=== PATIENT | female | born 1945 | race Caucasian/White ===

== ENCOUNTER 2017-11-07 12:54 | Emergency (ER) | payer MEDICARE, OTHER ==
[2017-11-07 14:50] VITALS: BP 152/66
--- NOTE | 2017-11-07 16:17 | EDM.PDOC ---
Scribed by Mary Felix 11/07/17 1449 for Teresita Grullon NP ED HPI GENERAL MEDICAL PROBLEM - General Chief Complaint: Upper Extremity Injury/Pain Stated Complaint: [id number] needs wrist looked at-SWOLLEN Time Seen by Provider: 11/07/17 13:23 Source of Information: Reports: Patient, RN, RN Notes Reviewed History Limitations: Reports: No Limitations - History of Present Illness INITIAL COMMENTS - FREE TEXT/NARRATIVE: Patient presents to ER with complaint of right wrist and right shoulder pain. Event occurred yesterday morning approximately 08:30 a.m. Pain in her right wrist 8/10 and right shoulder 5-6/10. Denies hitting head. No loss of consciousness. Patient is right handed. Onset Date: 11/06/17 Duration: Getting Worse Location: Reports: Upper Extremity, Right Quality: Reports: Ache Severity: Moderate Improves with: Reports: None Worsens with: Reports: None Associated Symptoms: Reports: No Other Symptoms Right Wrist Pain Score (Numeric/FACES): 8 - Related Data Allergies Allergy/AdvReac Type Severity Reaction Status Date / Time Penicillins Allergy Severe Anaphylactic Verified 11/07/17 13:01 Shock Home Meds: Home Meds Amiodarone HCl [Pacerone] 200 mg PO DAILY 03/23/15 [History] Levothyroxine 25 mcg PO ACBREAKFAST 03/23/15 [History] Sertraline [Zoloft] 25 mg PO DAILY 03/23/15 [History] Simvastatin [Zocor] 10 mg PO DAILY 03/23/15 [History] Warfarin [Coumadin] 10 mg PO DAILY 03/23/15 [History] metFORMIN HCl [Metformin HCl] 500 mg PO BID 03/23/15 [History] Past Medical History Cardiovascular History: Reports: High Cholesterol, Hypertension Respiratory History: Reports: None Gastrointestinal History: Reports: Other (See Below) Other Gastrointestinal History: diarrhea Genitourinary History: Reports: Other (See Below) Other Genitourinary History: bad kidneys Musculoskeletal History: Reports: Arthritis, Back Pain, Chronic Neurological History: Reports: CVA Other Neuro History: Left leg weak if tired Psychiatric History: Reports: Depression Endocrine/Metabolic History: Reports: Diabetes, Type II, Hypothyroidism Hematologic History: Reports: None Oncologic (Cancer) History: Reports: None Dermatologic History: Reports: None - Infectious Disease History Infectious Disease History: Reports: Chicken Pox, Measles, Mumps - Past Surgical History HEENT Surgical History: Reports: Cataract Surgery, Eye Surgery Female Surgical History: Reports: Tubal Ligation Musculoskeletal Surgical History: Reports: Other (See Below) (right wrist, right humerus and right shoulder.) Social & Family History - Family History Family Medical History: Noncontributory - Tobacco Use Smoking Status *Q: Never Smoker Second Hand Smoke Exposure: No - Caffeine Use Caffeine Use: Reports: None - Recreational Drug Use Recreational Drug Use: No - Living Situation & Occupation Living situation: Reports: , with Family Occupation: Retired Review of Systems - Review of Systems Review Of Systems: ROS reveals no pertinent complaints other than HPI. ED EXAM, GENERAL - Physical Exam Exam: See Below Exam Limited By: No Limitations General Appearance: Alert, WD/WN, No Apparent Distress Eye Exam: Bilateral Eye: EOMI, Normal Inspection Ears: Normal External Exam, Normal Canal, Hearing Grossly Normal, Normal TMs Nose: Normal Inspection, Normal Mucosa, No Blood Throat/Mouth: Normal Inspection, Normal Lips, Normal Teeth, Normal Gums, Normal Oropharynx, Normal Voice, No Airway Compromise Head: Atraumatic, Normocephalic Neck: Normal Inspection, Supple, Non-Tender, Full Range of Motion Respiratory/Chest: No Respiratory Distress, Lungs Clear, Normal Breath Sounds, No Accessory Muscle Use, Chest Non-Tender Cardiovascular: Normal Peripheral Pulses, Regular Rate, Rhythm, No Edema, No Gallop, No JVD, No Murmur, No Rub GI/Abdominal: Normal Bowel Sounds, Soft, Non-Tender, No Organomegaly, No Distention, No Abnormal Bruit, No Mass (Female) Exam: Deferred Rectal (Female) Exam: Deferred Back Exam: Normal Inspection Extremities: Other (decreased right of motion right wrist and should.) Neurological: Alert, Oriented, CN II-XII Intact, Normal Cognition, Normal Gait, Normal Reflexes, No Motor/Sensory Deficits Psychiatric: Normal Affect, Normal Mood Skin Exam: Warm, Dry, Intact, Normal Color, No Rash Lymphatic: No Adenopathy Course - Vital Signs Last Recorded V/S: Last Vital Signs Temp 97.1 F 11/07/17 13:03 Pulse 76 11/07/17 14:49 Resp 16 11/07/17 14:49 BP 152/66 H 11/07/17 14:49 Pulse Ox 99 11/07/17 14:49 - Radiology Interpretation Free Text/Narrative:: X-ray right shoulder: No acute fracture or subluxation. See rad report. X-ray right wrist: No acute findings. See rad report. Departure - Departure Time of Disposition: 14:47 Disposition: Home, Self-Care 01 Condition: Fair Clinical Impression: Sprain of shoulder Qualifiers: Encounter type: initial encounter Shoulder sprain type: unspecified sprain Laterality: right Qualified Code(s): S43.401A - Unspecified sprain of right shoulder joint, initial encounter Sprain of wrist Qualifiers: Encounter type: initial encounter Laterality: right Qualified Code(s): S63.501A - Unspecified sprain of right wrist, initial encounter - Discharge Information Instructions: Wrist Splint, Adult, [id number], Cast or Splint Care, Adult, [id number], Shoulder Pain, [id number] Referrals: Jessica Vazquez NP [Primary Care Provider] - Forms: ED Department Discharge Additional Instructions: May use Tylenol as directed for pain Follow up with your primary care facility if no improvement I have read and agree with the documentation that has been completed regarding this visit. By signing this record, I attest that the documentation was completed in my physical presence and is an accurate record of the encounter.
== END 2017-11-07 14:51 | disposition home or self-care (01) ==
LOC: DL.ED 12:54
DX: S43.401A Unspecified sprain of right shoulder joint, initial encounter (principal); S63.501A Unspecified sprain of right wrist, initial encounter; E78.00 Pure hypercholesterolemia, unspecified; I10 Essential (primary) hypertension; E11.9 Type 2 diabetes mellitus without complications; E03.9 Hypothyroidism, unspecified; Z88.0 Allergy status to penicillin; Z79.899 Other long term (current) drug therapy; Z79.01 Long term (current) use of anticoagulants; Z79.84 Long term (current) use of oral hypoglycemic drugs; X58.XXXA Exposure to other specified factors, initial encounter
CPT/HCPCS: 73030-RT; 73110-RT; 99283